=== PATIENT | female | born 1950 | race Caucasian/White ===

== ENCOUNTER → 2023-03-03 16:47 | Outpatient (CLI) | payer OTHER, SELFPAY ==
--- NOTE | 2023-03-03 16:58 | DI.RAD.S_ITS ---
PROCEDURE: XR CHEST 2V INDICATIONS: HYPERTENSION TECHNIQUE: 2 views of the chest were acquired. COMPARISON: None. FINDINGS: Surgical changes and devices: None. Lungs and pleura: Lungs are clear. No pleural effusions or pneumothorax. Mediastinum: Mediastinal contours are normal. Heart size is normal. Bones and chest wall: No suspicious bony abnormalities. Soft tissues appear unremarkable. IMPRESSION: No acute cardiopulmonary abnormality is seen. Dictated by: Sen Lehman M.D. on 03/04/2023 at 9:47 Approved by: Sen Lehman M.D. on 03/04/2023 at 9:47
== END ==
PROVIDERS: Referring Provider Internal Medicine; Visit Provider Internal Medicine
DX: D86.9 Sarcoidosis, unspecified (principal); R05.2 Subacute cough; R10.9 Unspecified abdominal pain; I10 Essential (primary) hypertension; I25.10 Atherosclerotic heart disease of native coronary artery without angina pectoris
CPT/HCPCS: 71046

== ENCOUNTER → 2023-04-13 06:40 | Outpatient (CLI) | payer OTHER, MEDICARE, SELFPAY ==
--- NOTE | 2023-04-13 06:42 | DI.US.S_ITS ---
PROCEDURE: US PELVIC COMPLETE INDICATIONS: Pelvic and perineal pain TECHNIQUE: Real-time scanning was performed of the pelvic organs, with image documentation. Additional endovaginal scanning was necessary due to incomplete visualization of the adnexal and endometrial structures by transabdominal scanning. COMPARISON: US PELVIC/TRANSVAGINAL, 04/30/2005, 10:22. FINDINGS: Uterus: Uterus is surgically absent. Ovaries: Ovaries are surgically absent. Other: No pathologic free abdominal or pelvic fluid. IMPRESSION: 1. Postsurgical changes. No findings to explain pelvic pain. We strive to produce accurate, complete, and clear reports of imaging services. To assist us in improving patient care, this report was composed using standard report templates and voice recognition software. Therefore, it may contain abnormal punctuation, insertions and/or omissions. Occasional wrong-word or sound-alike substitutions may occur. Though we review the report and make efforts to correct it, we do recommend that the report be read carefully in proper context to recognize any text inaccuracies. Dictated by: Priti Mensah M.D. on 04/13/2023 at 16:12 Approved by: Priti Mensah M.D. on 04/13/2023 at 16:16
== END ==
PROVIDERS: PCP Internal Medicine; Referring Provider Internal Medicine; Visit Provider Internal Medicine
DX: R10.2 Pelvic and perineal pain (principal); R19.8 Other specified symptoms and signs involving the digestive system and abdomen
CPT/HCPCS: 76830; 76856

== ENCOUNTER → 2023-06-14 06:58 | Outpatient (CLI) | payer OTHER, SELFPAY ==
[2023-06-14 09:02] LABS: Alanine Aminotransferase 21 IU/L (<35); Albumin 4.2 g/dL (3.5-5.0); Albumin Globulin Ratio 1.4 (1.0-2.8); Alkaline Phosphatase 96 U/L (38-126); Aspartate Aminotransferase 24 IU/L (14-36); BUN Creatinine Ratio 15.4 (6-22); Bilirubin Total 1.1 mg/dL (0.2-1.3); Blood Urea Nitrogen 12 mg/dL (7-17); Calcium 10.8 mg/dL (8.4-10.2); Carbon Dioxide 29 mmol/L (22-32); Chloride 108 mmol/L (98-107); Cholesterol 228 mg/dL (140-199); Estimated Glomerular Filt Rate > 60 mL/min (>60); Globulin 2.9 g/dL (1.7-4.1); Glucose 131 mg/dL (80-110); HDL Cholesterol 35 mg/dL (40-60); HEMOLYSIS < 15 (0-50); LDL Cholesterol Calculated 157 mg/dL (<100); Potassium 4.6 mmol/L (3.4-5.1); Sodium 142 mmol/L (137-145); Total Protein 7.1 g/dL (6.3-8.2); Triglycerides 179 mg/dL (35-150)
[2023-06-18 05:30] LABS: Free T3, Triiodothyronine Free 5.46 pg/mL (2.77-5.27); Free T4, Direct Thyroxine 1.14 ng/dL (0.78-2.19)
== END ==
LOC: LAB 07:01
PROVIDERS: PCP Internal Medicine; Referring Provider Internal Medicine; Visit Provider Internal Medicine
DX: E03.9 Hypothyroidism, unspecified (principal); E78.00 Pure hypercholesterolemia, unspecified
CPT/HCPCS: 36415; 80053; 80061; 84439; 84481

== ENCOUNTER → 2023-07-14 10:47 | Outpatient (CLI) | payer OTHER, SELFPAY ==
--- NOTE | 2023-07-14 10:48 | DI.RAD.S_ITS ---
PROCEDURE: XR DEXA AXIAL SKELETON INDICATIONS: Asymptomatic menopausal state COMPARISON: None. FINDINGS: Lumbar Spine: Bone mineral density 0.805 g/cm2, T score -2.2. Left Hip: Bone mineral density 0.777 g/cm2, T score -1.4. Left Femoral Neck: Bone mineral density 0.619 g/cm2, T score -2.1. Right Hip: Bone mineral density 0.809 g/cm2, T score -1.1. Right Femoral Neck: Bone mineral density 0.674 g/cm2, T score -1.6. Fracture Risk Calculation (when applicable): 10-year fracture risk of a major osteoporotic fracture 9.7% and of a hip fracture 1.4%. (T score greater or equal to -1.0 to: NORMAL) (T score from -1.1 to -2.4: OSTEOPENIA) (T score less than or equal to -2.5: OSTEOPOROSIS) IMPRESSION: Osteopenia. Follow-up guidelines as follows: Osteoporosis: Consider a repeat DEXA and Vertebral Fracture Assessment (VFA) exam in 2 years or sooner if medically necessary, to reassess this patient's status. Osteopenia: Consider a repeat DEXA in 2-3 years to reassess this patient's status, or if there is a new clinical indication. Normal: Consider a repeat DEXA in 5 years or sooner, or if there is a new clinical indication. Dictated by: Uriah Nunes M.D. on 07/14/2023 at 13:09 Approved by: Uriah Nunes M.D. on 07/14/2023 at 13:11
--- NOTE | 2023-07-14 10:49 | DI.CT.S_ITS ---
PROCEDURE: CT ABDOMEN PELVIS W CON INDICATIONS: abdominal pain TECHNIQUE: After the administration of intravenous contrast, axial sections acquired from the lung bases to the pubic symphysis. Coronal and sagittal reformats were performed. For radiation dose reduction, the following was used: automated exposure control, adjustment of mA and/or kV according to patient size. COMPARISON: None. FINDINGS: Image quality: Diagnostic. Lower Chest: No significant findings. ABDOMEN: Liver: No solid mass. Gallbladder: Cholecystectomy. Biliary ducts: No biliary dilation. Pancreas: No ductal dilation. Spleen: Size is within normal limits. Vascular calcifications at the hilum. Adrenal Glands: No adrenal nodules. Kidneys and Ureters: No hydronephrosis. No solid mass. No complex renal cystic lesion which requires follow up. Single, punctate nonobstructing left-sided nephrolithiasis. Stomach and Bowel: Normal colonic caliber, without significant wall thickening. 2 cm duodenal diverticulum extending into the pancreatic head. Colonic diverticulosis without evidence of diverticulitis. Peritoneum: No abnormal intraperitoneal fluid. No free air. Ventral Wall: Small umbilical hernia containing fat. Abdominal Nodes: No retroperitoneal or mesenteric adenopathy by size criteria. Vessels: Aorta and inferior vena cava are normal in size. PELVIS: Pelvic Organs: Ovaries and uterus not visualized. Bladder: No bladder wall thickening, accounting for underdistention. Pelvic Nodes: No enlarged lymph nodes. Miscellaneous: No inguinal hernias are seen. Bones: No aggressive osseous abnormality. IMPRESSION: No findings to explain the patient's symptoms. Single, punctate, nonobstructing left-sided nephrolithiasis. Colonic diverticulosis without evidence of diverticulitis. Dictated by: Gunner Gayle M.D. on 07/14/2023 at 14:09 Approved by: Gunner Gayle M.D. on 07/14/2023 at 14:16
== END ==
LOC: RAD 10:48
PROVIDERS: PCP Internal Medicine; Referring Provider Internal Medicine; Visit Provider Internal Medicine
DX: N20.0 Calculus of kidney (principal); K57.10 Diverticulosis of small intestine without perforation or abscess without bleeding; M85.89 Other specified disorders of bone density and structure, multiple sites; R10.32 Left lower quadrant pain
CPT/HCPCS: 74177; 77080; Q9967

== ENCOUNTER → 2023-08-10 14:43 | Outpatient (ROUT) | payer OTHER, SELFPAY ==
[2023-08-10 16:20] LABS: Influenza A - CEPHEID Flu A NEGATIVE (NEGATIVE); Influenza B - CEPHEID Flu B NEGATIVE (NEGATIVE); Respiratory Syncytial Virus Negative (Negative)
[2023-08-10 16:24] LABS: COVID-19 CEPHEID 4-PLEX PCR POSITIVE (Negative)
== END ==
PROVIDERS: PCP Internal Medicine; Visit Provider Internal Medicine
DX: R05.1 Acute cough (principal)
CPT/HCPCS: 0241U

== ENCOUNTER 2023-11-04 23:17 | Emergency (ER) | payer OTHER, SELFPAY ==
[2023-11-04 23:20] VITALS: BP 166/82; PULSE 89; O2SAT 93
[2023-11-04 23:24] VITALS: BP 166/81; PULSE 86; RESP 18; TEMP 36.5; O2SAT 98; BMI 31.4
--- NOTE | 2023-11-04 23:27 | ED_ITS ---
HPI - General Adult General Chief complaint: Extremity Injury, Upper Stated complaint: tripped fell into glass Time Seen by Provider: 11/04/23 23:24 Source: patient and EMS Mode of arrival: EMS Limitations: no limitations History of Present Illness HPI narrative: Patient is a 73-year-old female. Not on anticoagulation. Was at a local will establish when drinking alcohol this evening. She was walking to her car she stated that she lost her balance and fell through the front window of a local business. She sustained an injury to her right wrist which was splinted by EMS prior to arrival. She also has a cut on her nose and a cut to her right ear. No loss of consciousness. She was no hip pain or lower extremity pain. She stated that she just lost her balance and fell. She had no chest pain, palpitations or headache prior to the fall. Related Data Allergies Allergy/AdvReac Type Severity Reaction Status Date / Time Sulfa (Sulfonamide Allergy Intermediate Verified 11/04/23 23:41 Antibiotics) Review of Systems Review of Systems ROS Unobtainable: All systems reviewed & are unremarkable except as noted in HPI and below Patient History Social History Smoking Status: Never smoker Exam Initial Vital Signs Initial Vital Signs: Vital Signs Pulse Rate 89 11/04/23 23:20 Blood Pressure 166/82 H 11/04/23 23:20 Pulse Oximetry 93 11/04/23 23:20 Oxygen Delivery Method Room Air 11/04/23 23:20 Const General: No ill appearing HENMT Ears: other (Extensive laceration to right ear) Nose: nares normal, septum normal and other (2 cm laceration over bridge of nose) Mouth: oral mucosae normal and lip normal Eyes EOM: EOM intact bilaterally Chest Chest: No crepitus and No tenderness Resp Effort & Inspection: normal respiratory effort Auscultation: clear to auscultation bilaterally Cardio Rate: regular rate Rhythm: regular rhythm Pulses: radial pulses present on the right GI Inspection: normal to inspection Skin Other: 2 cm laceration over bridge of nose. Patient has an extensive laceration to her right ear to include areas to the right side of her face in front of the tragus. It does appear to extend into the external auditory canal. Involves the cartilage. The helix is intact. It does appear to be a through and through laceration with lacerations of the posterior aspect of the ear as well. Neuro General: patient alert, patient awake and patient oriented x3 Other: Obviously intoxicated Extrem Other: Obvious deformity to the right wrist. Pelvis is stable. Lower extremities unremarkable. Psych Appearance: grossly normal Procedures Laceration Repair Laceration 1: Site: face (Over bridge of nose) Description: linear Depth: simple, single layer Local Anesthetic: lidocaine 1% Amount of anesthesia used (mL): 3 Pre-repair: wound explored and deep structures intact Skin layer closed with: nylon Skin layer suture size: 5-0 Number of sutures: 5 Technique: simple, interrupted Orthopedic Splinting/Casting Injury #1: Side: right Upper Extremity Injury Location: wrist Upper Extremity Immobilizer: sugar tong splint Post splinting neuro exam: intact Post splinting vascular exam: intact Placed by: Provider Scores GCS Jac coma scale eye opening: Spontaneous [place] coma scale verbal response: Orientated Jac coma scale motor response: Obey commands Jac coma scale total score: 15 Course Orders Ordered: ED Orders 11/04/23 23:28 CT cervical spine wo con Stat CT head/brain wo con Stat XR wrist RT min 3V Stat Discontinued Medications Hydromorphone HCl (Hydromorphone 0.5 Mg Inj) 0.5 mg IV NOW ONE Stop: 11/05/23 01:07 Last Admin: 11/05/23 01:11 Dose: 0.5 mg Documented By: JAIME Lidocaine HCl (Lidocaine 1% 20 Ml) 20 ml INJ INTRA-OP ONE Stop: 11/04/23 23:30 Last Admin: 11/04/23 23:40 Dose: 20 ml Documented By: IMANI Vital Signs Vital signs: Vital Signs - 8 hr 11/04/23 23:20 11/04/23 23:20 11/04/23 23:24 Temperature 97.7 F Pulse Rate 89 86 Pulse Rate [Right Radial] Respiratory Rate 18 Blood Pressure 166/82 H 166/81 H Pulse Oximetry 93 98 Oxygen Delivery Method Room Air Room Air 11/04/23 23:30 11/04/23 23:33 11/05/23 00:01 Temperature Pulse Rate 85 86 Pulse Rate [Right Radial] 82 Respiratory Rate Blood Pressure Pulse Oximetry 95 98 Oxygen Delivery Method 11/05/23 00:16 11/05/23 00:16 11/05/23 00:30 Temperature Pulse Rate 88 Pulse Rate [Right Radial] Respiratory Rate Blood Pressure 165/73 H 161/68 H Pulse Oximetry 96 Oxygen Delivery Method 11/05/23 00:30 11/05/23 01:00 Temperature Pulse Rate 88 91 H Pulse Rate [Right Radial] Respiratory Rate Blood Pressure Pulse Oximetry 95 94 Oxygen Delivery Method Medical Decision Making Imaging Data CT scan - head: Radiologist's Impression: PROCEDURE: CT HEAD/BRAIN WO CON INDICATIONS: fall with head injury TECHNIQUE: Noncontrast 4.5 mm thick angled axial sections acquired from the foramen magnum to the vertex, with coronal and sagittal reformats. For radiation dose reduction, the following was used: automated exposure control, adjustment of mA and/or kV according to patient size. COMPARISON: None. FINDINGS: Image quality: Diagnostic. CSF spaces: Basal cisterns are patent. No extra-axial fluid collections. The ventricles are symmetric in size and shape. Brain: No intracranial bleeds or masses. There is cerebral volume loss for age, with resultant ventricular and sulcal prominence. There are periventricular and deep white matter chronic small vessel ischemic changes. There is intracranial internal carotid artery atherosclerosis. Skull and face: Calvarium and visualized facial bones appear intact, without suspicious lesions. Sinuses: Visualized sinuses and mastoids are clear. IMPRESSION: No acute intracranial pathology. Extremity x-ray #1: Radiologist's Impression: PROCEDURE: XR WRIST RT MIN 3V INDICATIONS: fall with deformity TECHNIQUE: 3 views of the wrist were acquired. COMPARISON: None. FINDINGS: Bones: Intra-articular radial styloid fracture mild apex dorsal angulation. Mildly displaced ulnar styloid fracture. Soft tissues: No suspicious soft tissue calcifications. IMPRESSION: Mildly angulated, intra-articular fracture of the radial styloid. Mildly displaced ulnar styloid fracture. CT - cervical spine: Radiologist's Impression: PROCEDURE: CT CERVICAL SPINE WO CON INDICATIONS: fall with head injury TECHNIQUE: Noncontrast 3 mm thick sections acquired from the skull base to the T4 level. Sagittal and coronal reformats were then constructed. For radiation dose reduction, the following was used: automated exposure control, adjustment of mA and/or kV according to patient size. COMPARISON: None. FINDINGS: Image quality: Excellent. Bones: No fractures or dislocations. Visualized superior ribs are intact. Soft tissues: Prevertebral soft tissues are normal in thickness. No paravertebral hematomas. No apical pneumothoraces. Ground-glass and consolidative nodules in the lung apices. IMPRESSION: No displaced fracture or traumatic subluxation. Ground-glass and consolidative nodules in the lung apices. Findings are nonspecific but differential includes severe infection, acute lung injury, drug reaction, less likely contusions. Recommend CT of the chest for complete characterization. MDM Narrative Medical decision making narrative: Patient is obviously intoxicated however is alert and oriented x3. CT scan of the head and C-spine are unremarkable. Patient has a right wrist fracture which was splinted as described above. Pelvis is stable. No lower extremity injuries. Patient has a laceration over her nose which was closed as described above. Initially attempted to close the right ear laceration however once the area was cleaned and anesthetized and it was evaluated further this is a very extensive laceration to the right ear that potentially includes the external auditory canal and the cartilage and potentially is all the way through the ear. I discussed the case with Dr. Cooper on-call for ENT I do feel that his expertise would be warranted given the extensive laceration of the ear. You recommended that the patient be transferred to [facility] so he can evaluate the patient there. Patient is stable for transport. Discussed the case with ED provider as well. Dr. Cooper is accepting provider. Discussed need for transfer with the patient. She expressed understanding and agreement as well. Discharge Plan Departure Patient Disposition: [facility] Clinical Impression: Right wrist fracture, Laceration of nose, Laceration of ear, external, right, Alcohol intoxication Activity Restrictions/Additional Instructions: The splint that was placed here in the emergency department needs to be treated like a cast. You need to keep it clean and keep it dry. I do recommend that you contact the orthopedic provider at the number provided below for follow-up next week. You are being transferred to [facility] to be seen by the inventory specialist given the complexity of the laceration to your right ear. Referrals: Maricarmen Kearney MD [Physician] - Zohreh Dee ARNP [Primary Care Provider] -
--- NOTE | 2023-11-04 23:28 | DI.RAD.S_ITS ---
PROCEDURE: XR WRIST RT MIN 3V INDICATIONS: fall with deformity TECHNIQUE: 3 views of the wrist were acquired. COMPARISON: None. FINDINGS: Bones: Intra-articular radial styloid fracture mild apex dorsal angulation. Mildly displaced ulnar styloid fracture. Soft tissues: No suspicious soft tissue calcifications. IMPRESSION: Mildly angulated, intra-articular fracture of the radial styloid. Mildly displaced ulnar styloid fracture. Dictated by: Gunner Gayle M.D. on 11/05/2023 at 0:16 Approved by: Gunner Gayle M.D. on 11/05/2023 at 0:17
[2023-11-04 23:30] VITALS: PULSE 85; O2SAT 95
[2023-11-04 23:33] VITALS: PULSE 82
[2023-11-04] MEDS: LIDOCAINE 1% 20 ML INJ (23:40)
[2023-11-05] VITALS (8 sets, daily range): BP systolic 142–165; BP diastolic 66–73; PULSE 86–94; RESP 17; O2SAT 92–98
[2023-11-05] MEDS: HYDROMORPHONE 0.5 MG INJ IV ×2 (01:11→02:46)
--- NOTE | 2023-11-05 02:38 | PC.NURSE ---
Report given to [facility] transport [place].
== END 2023-11-05 02:49 | disposition short-term general hospital (02) ==
PROVIDERS: Emergency Provider Emergency Medicine; PCP Internal Medicine
DX: S52.511A Displaced fracture of right radial styloid process, initial encounter for closed fracture (principal); S01.81XA Laceration without foreign body of other part of head, initial encounter; W01.198A Fall on same level from slipping, tripping and stumbling with subsequent striking against other object, initial encounter
CPT/HCPCS: 12011; 29125; 36415; 70450; 72125; 73110; 96374; 96376; 99284; J1170

== ENCOUNTER 2023-11-10 07:41 | Day surgery (SDC) | payer OTHER, SELFPAY ==
[2023-11-10] VITALS (12 sets, daily range): BP systolic 130–174; BP diastolic 58–80; PULSE 70–83; RESP 14–74; TEMP 36.5–36.7; O2SAT 16–98; BMI 31.4
--- NOTE | 2023-11-10 07:59 | SUR.OPER ---
Supine on padded OR bed, head on pillow, arms secured on padded arm boards at <90 degrees abduction, legs uncrossed, safety belt at thigh, tape over blanket over lower legs.
[2023-11-10] MEDS: LACTATED RINGERS 1,000 ML 42 ML IV (08:05)
--- NOTE | 2023-11-10 08:06 | PM.PREOP ---
Pre-operative Note Interval Note History & Physical reviewed/Exam performed by Physician: Yes Changes to H&P: No
[2023-11-10] MEDS: ACETAMINOPHEN 325 MG TABLET 975 MG PO (08:11)
--- NOTE | 2023-11-10 08:31 | P.OP_ITS ---
Operative Date/Time/Diagnoses Date of procedure: 11/10/23 Time of procedure: 08:50 Pre-op diagnosis: Intra-articular distal radius fracture, right Post-op diagnosis: same Procedure & Clinicians Procedure: Open reduction internal fixation intra-articular distal radius fracture right 2 parts CPT code 48320 Same procedure as scheduled: Yes Indications: The patient is a 73-year-old right-hand dominant female that a fall on outstretched hand this weekend she also sustained abrasions to her ear and face. She sustained a displaced intra-articular fracture of her distal radius fractures indicated for open reduction internal fixation to restore alignment length and reduce the risks of posttraumatic arthritis and prolonged dysfunction. The risks and benefits of the procedure have been discussed with the patient and given the opportunity to ask questions. The risks of surgery include but are not limited to infection, malunion, nonunion, persistence of pain, damage to nerves and blood vessels, posttraumatic arthritis, DVT, PE, cardiopulmonary complications and . The patient expressed a thorough understanding of the risks and benefits of surgery and has elected to proceed. Consent was signed Surgeon: Maricarmen Kearney Click Yes if Unassisted: Yes Anesthesia Type: General Operative Notes Findings: Displaced intra-articular distal radius fracture, right Several superficial abrasions over the volar wrist Closure Type: primary Specimen(s): none sent Prosthetic devices, grafts, tissues, transplants, or devices: Arthrex volar locking distal radius plate, nonlocking and locking screws, standard, right 3 hole Estimated Blood Loss (mL): 10 Blood products transfused: none Tourniquet time (min): 30 Procedure in detail: Patient sustained a displaced right distal radius fracture was indicated for operative reduction fixation to prevent malunion and prolonged function, loss of motion, wrist arthritis. The risks benefits and alternatives to procedure were discussed at length with the patient expressed understanding. These included but were not limited to bleeding, infection, damage to nerves, prominent hardware, pain, malunion, nonunion, blood clot, pulmonary embolism, and cardiovascular risk associated with general anesthesia. Consent was signed in the office. The patient was seen in the site of surgery was marked, this was the right wrist, in the preoperative area. The patient was then brought to the operating room placed on the operative table in the supine position. Hand table was placed on the operative side. General anesthesia was administered. SCDs were 1 the legs and all bony prominence were padded. A well-padded brachial tourniquet was placed. A formal time-out procedure was called confirming the patient's side and site of surgery administration of preoperative antibiotics and presence of consent. All agreed. The operative extremity was prepped and draped in the standard sterile fashion. An Esmarch was used for exsanguination and the brachial tourniquet was raised to 250 mm of mercury. Standard FCR approach to the wrist was drawn in the incision made. The FCR was exposed. The sheath was opened and the tendon was retracted ulnar protect the palmar cutaneous branch of the median nerve. Floor of the FCR was opened to expose the deep muscles. The FPL was retracted ulnar and the pronator quadratus was released from the radial border and reflected ulnar to expose the distal radius and distal fracture. Fracture was disimpacted and cleaned, including the intra-articular split. The fracture was reduced with traction flexion ulnar deviation. An 045 K-wire was advanced percutaneously from the radial styloid to the metaphysis to hold the reduction. Reduction was checked fluoroscopy and radial inclination tilt was recreated. Three hole Arthrex to volar locking plate was selected and positioned and provisionally fixed with K-wires. Once this was satisfactory, nonlocking 3.5 screws placed in the oblong hole and secured. Distal screws were then placed 1st with locking screws. These were placed carefully not to penetrate the dorsal cortex. Once this was completed and checked for prominence the final locking shaft screws were placed. Again with care to avoid prominence. Final intraoperative images were obtained reviewed demonstrating no evidence of hardware prominence. Wrist motion was checked and was full and maintained and stable DRUJ. The wound was then irrigated and closed in layers. Hemostasis was achieved and the tourniquet was released prior to closing. Three 0 Vicryl was used deep and subcutaneous and 3 O nylon in the skin. Sterile dressings with a volar splint were applied. There no immediate complications. Surgical counts were correct. The patient tolerated the pr ocedure well was taken recovery room. Complications: none Post-operative Condition: stable Disposition: PACU Plan for aftercare: 2 lb weight limit on the right wrist. Elbow range of motion finger range of motion as tolerated. Follow up in Orthopedic Clinic in 2 weeks for wound check and suture removal.
--- NOTE | 2023-11-10 08:42 | SUR.PREOP ---
Block start time [TIMEOUT AT [address] ARANGO AND THIS NURSE. START TIME 2 0833] . Monitoring initiated and maintained throughout procedure. Oxygen and medications given per anesthesiologist instructions. Patient remained stable throughout procedure, no adverse reactions noted. Block end time [0837 ].
[2023-11-10] MEDS: CEFAZOLIN 2 GM/100 ML PREMIX 100 ML IV (08:48)
[2023-11-10] MEDS: hydrOXYzine 50 MG/ML INJ 25 MG IM (10:12)
[2023-11-10] MEDS: OXYCODONE IR 5 MG TABLET PO ×2 (10:16→10:44)
[2023-11-10] MEDS: ONDANSETRON 4 MG/2 ML INJ IV (10:23)
== END 2023-11-10 12:47 | disposition home or self-care (01) ==
PROVIDERS: PCP Internal Medicine; Referring Provider Orthopaedic Surgery Foot and Ankle Surgery; Visit Provider Orthopaedic Surgery Foot and Ankle Surgery
PROC: (CPT 25608; principal; 2023-11-10 08:45)
DX: S52.571A Other intraarticular fracture of lower end of right radius, initial encounter for closed fracture (principal); G89.18 Other acute postprocedural pain; W19.XXXA Unspecified fall, initial encounter
CPT/HCPCS: 25608; 64450; C1713; J0171; J0690; J1100; J1170; J2405; J2704; J3410

== ENCOUNTER → 2024-06-28 11:06 | Outpatient (CLI) | payer MEDICARE, SELFPAY ==
[2024-06-28 13:46] LABS: Influenza A - CEPHEID Flu A NEGATIVE (NEGATIVE); Influenza B - CEPHEID Flu B NEGATIVE (NEGATIVE); Respiratory Syncytial Virus Negative (Negative)
[2024-06-28 13:47] LABS: COVID-19 CEPHEID 4-PLEX PCR Negative (Negative)
== END ==
PROVIDERS: PCP Family Medicine; Visit Provider Family Medicine
DX: J02.9 Acute pharyngitis, unspecified (principal); R73.01 Impaired fasting glucose; E83.52 Hypercalcemia; I10 Essential (primary) hypertension; E78.5 Hyperlipidemia, unspecified; E03.9 Hypothyroidism, unspecified
CPT/HCPCS: 0241U; 87070

== ENCOUNTER → 2024-08-23 10:35 | Outpatient (CLI) | payer MEDICARE, SELFPAY ==
[2024-08-23 12:29] LABS: Hemoglobin A1C% w Est Avg Glu 5.4 % (4.0-6.0)
[2024-08-23 12:35] LABS: HEMOLYSIS < 15 (0-50)
[2024-08-23 12:38] LABS: BUN Creatinine Ratio 19.8 (6-22); Blood Urea Nitrogen 16 mg/dL (7-17); Calcium 10.7 mg/dL (8.4-10.2); Carbon Dioxide 26 mmol/L (22-32); Cholesterol 169 mg/dL (140-199); Estimated Glomerular Filt Rate > 60 mL/min (>60); Glucose 105 mg/dL (70-99); HDL Cholesterol 38 mg/dL (40-60); LDL Cholesterol Calculated 95 mg/dL (<100); Potassium 4.4 mmol/L (3.4-5.1); Sodium 139 mmol/L (137-145); Triglycerides 182 mg/dL (35-150)
[2024-08-23 13:32] LABS: Chloride 104 mmol/L (98-107)
[2024-08-23 13:46] LABS: Free T4, Direct Thyroxine 0.72 ng/dL (0.78-2.19)
[2024-08-23 21:43] LABS: Vitamin D 25 Hydroxy (D3) 29.1 ng/mL (30.0-100.0)
[2024-08-24 06:38] LABS: Ionized Calcium 5.6 mg/dL (4.5-5.6)
[2024-08-24 08:40] LABS: Parathyroid Hormone Int 71 pg/mL (15-65)
== END ==
PROVIDERS: PCP Family Medicine; Referring Provider Family Medicine; Visit Provider Family Medicine
DX: R73.01 Impaired fasting glucose (principal); E78.5 Hyperlipidemia, unspecified; E83.52 Hypercalcemia; E03.9 Hypothyroidism, unspecified; I10 Essential (primary) hypertension
CPT/HCPCS: 36415; 80048; 80061; 82306; 82330; 83036; 83970; 84439; 84443

== ENCOUNTER → 2024-08-24 10:16 | Outpatient (CLI) | payer MEDICARE, SELFPAY | PROVIDERS: PCP Family Medicine; Referring Provider Family Medicine; Visit Provider Family Medicine | DX: R73.01 Impaired fasting glucose (principal); E83.52 Hypercalcemia; E78.5 Hyperlipidemia, unspecified; I10 Essential (primary) hypertension; E03.8 Other specified hypothyroidism; D86.9 Sarcoidosis, unspecified | CPT/HCPCS: 83883; 84155; 84165 ==

== ENCOUNTER → 2024-12-22 08:18 | Outpatient (CLI) | payer MEDICARE, SELFPAY ==
[2024-12-22 09:00] LABS: Hematocrit 43.2 % (36-46); Hemoglobin 14.9 g/dL (12.0-16.0); Mean Corpuscular HGB Conc 34.6 % (30-36); Mean Corpuscular Hemoglobin 29.0 PG (26-34); Mean Corpuscular Volume 83.8 fL (80-100); Platelet Count 196 X10^3/uL (150-400)
[2024-12-22 09:05] LABS: Hemoglobin A1C% w Est Avg Glu 5.9 % (4.0-6.0)
[2024-12-22 09:26] LABS: Alanine Aminotransferase 24 IU/L (<35); Albumin 4.3 g/dL (3.5-5.0); Albumin Globulin Ratio 1.7 (1.0-2.8); Alkaline Phosphatase 80 U/L (38-126); Blood Urea Nitrogen 12 mg/dL (7-17); Calcium 10.3 mg/dL (8.4-10.2); Carbon Dioxide 25 mmol/L (22-32); Chloride 106 mmol/L (98-107); Cholesterol 155 mg/dL (140-199); Estimated Glomerular Filt Rate > 60 mL/min (>60); Globulin 2.6 g/dL (1.7-4.1); Glucose 126 mg/dL (70-99); HDL Cholesterol 37 mg/dL (40-60); HEMOLYSIS < 15 (0-50); Potassium 4.4 mmol/L (3.4-5.1); Sodium 140 mmol/L (137-145); Total Protein 6.9 g/dL (6.3-8.2); Triglycerides 159 mg/dL (35-150)
[2024-12-22 09:51] LABS: TSH w/ Reflex to FT4 5.29 uIU/mL (0.47-4.68)
[2024-12-22 10:23] LABS: Free T4, Direct Thyroxine 1.49 ng/dL (0.78-2.19)
== END ==
PROVIDERS: PCP Family Medicine; Referring Provider Family Medicine; Visit Provider Family Medicine
DX: E03.8 Other specified hypothyroidism (principal); R73.01 Impaired fasting glucose; E78.5 Hyperlipidemia, unspecified; E83.52 Hypercalcemia; R53.82 Chronic fatigue, unspecified
CPT/HCPCS: 36415; 80053; 80061; 83036; 84439; 84443; 85027